=== PATIENT | male | born 1995 | race Caucasian/White ===

== ENCOUNTER 2016-09-17 11:54 | Observation (INO) | payer SELFPAY ==
[~2016-09-17] VITALS: Ht 160 cm; Wt 60.1 kg
[2016-09-17] MEDS ORDERED: ONDANSETRON INJ 2 MG/ML 2 ML VIAL IV STA (12:31)
[2016-09-17] MEDS ORDERED: SODIUM CHLORIDE 0.9% 1000ML 1,000 ML IV STA (12:31)
[2016-09-17] MEDS ORDERED: KETOROLAC TROMETHAMINE 30 MG/ML VIAL IV STA (12:31)
[2016-09-17 12:45] LABS: BASO % 0.2 %; BASO ABS # 0.03 K/uL (0-0.2); COMPLETE YES; EOS % 0.1 %; HEMATOCRIT 47.5 % (42-52); IG% 0.2 %; LYMPH ABS # 1.02 K/uL (1.2-3.4); MEAN CELL VOLUME 87.2 fL (80-100); MEAN CORPUSCULAR HEMOGLOBIN 30.6 pg (25-34); MEAN CORPUSCULAR HGB CONC 35.2 g/dl (32-36); MEAN PLATELET VOLUME 9.9 fL (7.4-10.4); MONO % 5.3 %; NEUT % 87.2 %; PLATELET COUNT 253 K/uL (130-400); RED BLOOD COUNT 5.45 M/uL (4.7-6.1); WHITE BLOOD COUNT 14.54 K/uL (4.8-10.8)
[2016-09-17] MEDS ORDERED: OPTIRAY 320 IV PRN (12:45)
[2016-09-17 12:53] LABS: PARTIAL THROMBOPLASTIN RATIO 1.1; PROTHROMBIN TIME (PATIENT) 11.1 SECONDS (9.0-12.0)
[2016-09-17 12:54] LABS: BUN/CREATININE RATIO 10.6 (10-20); CALCIUM 8.8 mg/dl (8.5-10.1); CREATININE 0.94 mg/dl (0.60-1.40); POTASSIUM 3.4 mmol/L (3.5-5.1)
[2016-09-17 13:09] LABS: URINE APPEARANCE CLEAR (CLEAR); URINE BILIRUBIN NEG (NEG); URINE COLOR YELLOW; URINE NITRITE NEG (NEG); URINE SPECIFIC GRAVITY 1.025 (1.000-1.030); UROBILINOGEN NEG (NEG); ZZUR CULT IF INDIC CLEAN CATCH NO
[2016-09-17 13:15] LABS: MANUAL MICROSCOPIC REQUIRED? NO; REVIEW REQ? NO
--- NOTE | 2016-09-17 13:54 | DIAGNOSTIC IMAGING REPORT ---
CHEST ONE VIEW PORTABLE CLINICAL HISTORY: ABDOMINAL PAIN/GI COMPARISON STUDY: No previous studies for comparison. FINDINGS: The bones soft tissues and hemidiaphragms are normal. The cardiomediastinal silhouette is normal. The lungs are clear. The pulmonary vasculature is normal. IMPRESSION: Negative chest. Electronically signed by: Amilcar Rodriguez M.D. 09/17/2016 1:53 PM Dictated Date/Time: 09/17/2016 1:53 PM
--- NOTE | 2016-09-17 15:12 | DIAGNOSTIC IMAGING REPORT ---
ABDOMEN AND PELVIS CT WITH IV CONTRAST CT DOSE: 329.02 mGy.cm HISTORY: Right lower quadrant pain RLA pain r/o appy TECHNIQUE: Multiaxial CT images of the abdomen and pelvis were performed following the use of intravenous contrast. COMPARISON STUDY: None. FINDINGS: Lung bases are clear. Liver spleen and pancreas are unremarkable. Kidneys enhance uniformly. The bowel pattern is nonobstructive. The appendix is identified medial to the cecum. There is a small appendicolith. The appendix is slightly prominent diameter at 7 mm. There is no evidence for abscess collection or obstruction. Appearance suggests a low-grade appendicitis. Bowel pattern within the soft tissue pelvis is unremarkable. Bladder is midline. There is no significant free fluid within the pelvic cul-de-sac. IMPRESSION: 1. Slight increase in diameter of the appendix is 7 mm with a trace amount of periappendiceal infiltrative change. 2. Small appendicolith. 3. The appearance suggests a low-grade acute appendicitis. 4. No evidence for abscess collection or obstruction. Electronically signed by: Amilcar Rodriguez M.D. 09/17/2016 1:34 PM Dictated Date/Time: 09/17/2016 1:24 PM
--- NOTE | 2016-09-17 15:17 | EMERGENCY ROOM VISIT NOTE ---
History Report prepared by Jose Manuel: Preston Connolly Under the Supervision of: Dr. Reece Padilla D.O. First contact with patient: 12:07 Chief Complaint: ABDOMINAL PAIN Stated Complaint: STOMACH PAIN Nursing Triage Summary: Per friend patient states he has been having alot of stomach pain with no vomiting or diarrhea. History of Present Illness The patient is a 21 year old male who presents to the Emergency Room with complaints of constant abdominal pain beginning 10 hours ago. The patient currently rates his discomfort a 5/10 in severity. He states that he is nauseous. The patient denies vomiting, changes to his urinary symptoms, and fecal retention. He notes that his last normal bowel movement was last night. The patient reports that he has no medical or surgical history. Source of History: patient Onset: 10 hours ago Position: abdomen Symptom Intensity: 5/10 Timing: constant Associated Symptoms: + nausea, No vomiting Note: The patient denies changes to his urinary symptoms and fecal retention. Review of Systems See HPI for pertinent positives & negatives. A total of 10 systems reviewed and were otherwise negative. Family History No pertinent family history stated. Social History Smoking Status: Current Every Day Smoker Marital Status: single Housing Status: lives with family Current/Historical Medications No Active Prescriptions or Reported Meds Allergies Coded Allergies: No Known Allergies (Unverified , 09/17/16) Physical Exam Vital Signs Date Time Temp Pulse Resp B/P Pulse Ox O2 Delivery O2 Flow Rate FiO2 09/17/16 15:21 82 16 114/68 100 Room Air 09/17/16 13:51 80 18 131/76 100 Room Air 09/17/16 11:58 36.8 89 16 136/90 100 Room Air Physical Exam CONSTITUTIONAL/VITAL SIGNS: Reviewed / noted above. GENERAL: Non-toxic in appearance. INTEGUMENTARY: Warm, dry, and [place]. HEAD: Normocephalic. EYES: without scleral icterus or trauma. ENT/OROPHARYNX: clear and moist. LYMPHADENOPATHY/NECK: Is supple without lymphadenopathy or meningismus. RESPIRATORY: Lungs clear and equal. CARDIOVASCULAR: Regular rate and rhythm. GI/ABDOMEN: Soft. Right lower quadrant is tender to palpation. No organomegaly or pulsatile mass. No rebound or guarding. Normal bowel sounds. EXTREMITIES: Warm and well perfused. BACK: No CVA tenderness. NEUROLOGICAL: Intact without focal deficits. PSYCHIATRIC: normal affect. MUSCULOSKELETAL: Normally developed with good muscle tone. Medical Decision & Procedures ER Provider Diagnostic Interpretation: Radiology results as stated below per my review and radiologist interpretation: CHEST ONE VIEW PORTABLE CLINICAL HISTORY: ABDOMINAL PAIN/GI COMPARISON STUDY: No previous studies for comparison. FINDINGS: The bones soft tissues and hemidiaphragms are normal. The cardiomediastinal silhouette is normal. The lungs are clear. The pulmonary vasculature is normal. IMPRESSION: Negative chest. Electronically signed by: Amilcar Rodriguez M.D. 09/17/2016 1:53 PM Dictated Date/Time: 09/17/2016 1:53 PM ABDOMEN AND PELVIS CT WITH IV CONTRAST CT DOSE: 329.02 mGy.cm HISTORY: Right lower quadrant pain RLA pain r/o appy TECHNIQUE: Multiaxial CT images of the abdomen and pelvis were performed following the use of intravenous contrast. COMPARISON STUDY: None. FINDINGS: Lung bases are clear. Liver spleen and pancreas are unremarkable. Kidneys enhance uniformly. The bowel pattern is nonobstructive. The appendix is identified medial to the cecum. There is a small appendicolith. The appendix is slightly prominent diameter at 7 mm. There is no evidence for abscess collection or obstruction. Appearance suggests a low-grade appendicitis. Bowel pattern within the soft tissue pelvis is unremarkable. Bladder is midline. There is no significant free fluid within the pelvic cul-de-sac. IMPRESSION: 1. Slight increase in diameter of the appendix is 7 mm with a trace amount of periappendiceal infiltrative change. 2. Small appendicolith. 3. The appearance suggests a low-grade acute appendicitis. 4. No evidence for abscess collection or obstruction. Electronically signed by: Amilcar Rodriguez M.D. 09/17/2016 1:34 PM Dictated Date/Time: 09/17/2016 1:24 PM Laboratory Results 09/17/16 12:20 Red Blood Count 5.45, Mean Corpuscular Volume 87.2, Mean Corpuscular Hemoglobin 30.6, Mean Corpuscular Hemoglobin Concent 35.2, Mean Platelet Volume 9.9, Neutrophils (%) (Auto) 87.2, Lymphocytes (%) (Auto) 7.0, Monocytes (%) (Auto) 5.3, Eosinophils (%) (Auto) 0.1, Basophils (%) (Auto) 0.2, Neutrophils # (Auto) 12.67, Lymphocytes # (Auto) 1.02, Monocytes # (Auto) 0.77, Eosinophils # (Auto) 0.02, Basophils # (Auto) 0.03 09/17/16 12:20 Test 09/17/16 12:20 White Blood Count 14.54 K/uL (4.8-10.8) Red Blood Count 5.45 M/uL (4.7-6.1) Hemoglobin 16.7 g/dL (14.0-18.0) Hematocrit 47.5 % (42-52) Mean Corpuscular Volume 87.2 fL (80-100) Mean Corpuscular Hemoglobin 30.6 pg (25-34) Mean Corpuscular Hemoglobin Concent 35.2 g/dl (32-36) Platelet Count 253 K/uL (130-400) Mean Platelet Volume 9.9 fL (7.4-10.4) Neutrophils (%) (Auto) 87.2 % Lymphocytes (%) (Auto) 7.0 % Monocytes (%) (Auto) 5.3 % Eosinophils (%) (Auto) 0.1 % Basophils (%) (Auto) 0.2 % Neutrophils # (Auto) 12.67 K/uL (1.4-6.5) Lymphocytes # (Auto) 1.02 K/uL (1.2-3.4) Monocytes # (Auto) 0.77 K/uL (0.11-0.59) Eosinophils # (Auto) 0.02 K/uL (0-0.5) Basophils # (Auto) 0.03 K/uL (0-0.2) RDW Standard Deviation 38.5 fL (36.4-46.3) RDW Coefficient of Variation 12.1 % (11.5-14.5) Immature Granulocyte % (Auto) 0.2 % Immature Granulocyte # (Auto) 0.03 K/uL (0.00-0.02) Prothrombin Time 11.1 SECONDS (9.0-12.0) Prothromb Time International Ratio 1.0 (0.9-1.1) Activated Partial Thromboplast Time 29.0 SECONDS (21.0-31.0) Partial Thromboplastin Ratio 1.1 Urine Color YELLOW Urine Appearance CLEAR (CLEAR) Urine pH 7.0 (4.5-7.5) Urine Specific [place] 1.025 (1.000-1.030) Urine Protein NEG (NEG) Urine Glucose (UA) NEG (NEG) Urine Ketones NEG (NEG) Urine Occult Blood NEG (NEG) Urine Nitrite NEG (NEG) Urine Bilirubin NEG (NEG) Urine Urobilinogen NEG (NEG) Urine Leukocyte Esterase NEG (NEG) Urine WBC (Auto) 0 /hpf (0-5) Urine RBC (Auto) 0-4 /hpf (0-4) Urine Hyaline Casts (Auto) 0 /lpf (0-5) Urine Epithelial Cells (Auto) 5-10 /lpf (0-5) Urine Bacteria (Auto) NEG (NEG) Anion Gap 8.0 mmol/L (3-11) Est Creatinine Clear Calc Drug Dose 99.2 ml/min Estimated GFR () 132.9 Estimated GFR (Non- 114.6 BUN/Creatinine Ratio 10.6 (10-20) Calcium Level 8.8 mg/dl (8.5-10.1) Total Bilirubin 0.5 mg/dl (0.2-1) Direct Bilirubin 0.1 mg/dl (0-0.2) Aspartate Amino Transf (AST/SGOT) 19 U/L (15-37) Alanine Aminotransferase (ALT/SGPT) 14 U/L (12-78) Alkaline Phosphatase 112 U/L (45-117) Total Protein 7.8 gm/dl (6.4-8.2) Albumin 4.4 gm/dl (3.4-5.0) Lipase 65 U/L (73-393) Laboratory results as stated above per my review. Medications Administered Medications (Trade) Dose Ordered Sig/Bull Route Start Time Stop Time Status Last Admin Dose Admin Sodium Chloride (Nss 1000ml) 1,000 ml @ 999 mls/hr Q1H1M STAT IV 09/17/16 12:31 09/17/16 13:31 DC 09/17/16 12:43 999 MLS/HR Ondansetron HCl (Zofran Inj) 4 mg NOW STAT IV 09/17/16 12:31 09/17/16 12:33 DC 09/17/16 12:42 4 MG Ketorolac Tromethamine (Toradol Inj) 30 mg NOW STAT IV 09/17/16 12:31 09/17/16 12:33 DC 09/17/16 12:43 30 MG ED Course 1226: Previous medical records were reviewed. The patient was evaluated in room C10. A complete history and physical examination was performed. 1231: Ordered Toradol Inj 30mg IV, Zofran Inj 4mg IV, Sodium Chloride 1000 ml @ 999 mls/hr IV 1519: I discussed the patient's case and exam finding with Dr. Duran, General Surgery. The patient will be evaluated for surgery. 1522: I discussed the patient's exam findings and treatment plan with him. He verbalized complete understanding and agreement. Medical Decision Differential considered: pancreatitis, hepatitis, or acute cholecystitis, AAA, UTI, pyelonephritis, kidney stones, appendicitis, diverticulitis, shingles, bowel obstruction mesenteric ischemia, intussusception,hernia, testicular torsion. This is a 21-year-old male who presents to the ED with a chief complaint of right lower quadrant abdominal pain and nausea that started about 10 hours prior to his arrival. He denies any prior surgeries. Denies any other significant symptoms. His exam reveals tenderness in the right lower quadrant. His blood work reveals an elevated white blood cell count. Chemistry panel was unremarkable. Chest x-ray did not show acute disease. CT scan of the abdomen and pelvis is concerning for a low-grade acute appendicitis. I spoke with the surgeon on-call. He will see the patient for further evaluation. He was treated with IV fluids here as well as IV Zofran and IV Toradol. Consults Time Called: 1516 Consulting Physician: Dr. Duran, General Surgery Returned Call: 1519 I discussed the patient's case and exam finding with Dr. Duran, General Surgery. The patient will be evaluated for surgery. Impression Primary Impression: Acute appendicitis Scribe Attestation The scribe's documentation has been prepared under my direction and personally reviewed by me in its entirety. I confirm that the note above accurately reflects all work, treatment, procedures, and medical decision making performed by me. Departure Information Dispostion Being Evaluated By Surgeon Prescriptions No Active Prescriptions or Reported Meds Referrals No Doctor, Assigned (PCP) Patient Instructions My [facility]
--- NOTE | 2016-09-17 16:04 | History and Physical ---
History & Physical Date September 17, 2016. History of Present Illness The patient is a 21 year old male with acute appendicitis. He presented to the Emergency Room with complaints of constant abdominal pain beginning 10 hours ago. The patient currently rates his discomfort a 5/10 in severity. He states that he is nauseous. The patient denies vomiting, changes to his urinary symptoms, and fecal retention. He notes that his last normal bowel movement was last night. The patient reports that he has no medical or surgical history. A CT scan shows early acute appendicitis. Past Medical/Surgical History PMHx -negative PSHx -negative Additional History Hepatic Disease: No Endocrine Disorder: No Kidney Disease: No Hypertension: No Heart Disease: No Bleeding Tendencies: No Infectious Diseases: No Allergies Coded Allergies: No Known Allergies (Unverified , 09/17/16) Home Medications No Active Prescriptions or Reported Meds Physical Examination Skin: warm/dry, no rash Eyes: normal inspection, EOMI, sclerae normal ENT: normal ENT inspection, pharynx normal Head: normocephalic, atraumatic Neck: supple, no adenopathy, trachea midline Respiratory/Chest: lungs clear, normal breath sounds, no respiratory distress Cardiovascular: regular rate, rhythm, no edema, no murmur Abdomen / GI: normal bowel sounds, + pertinent finding (RLQ tenderness with guarding) Back: normal inspection Extremities: normal inspection Genitourinary - Male: normal male genitalia Neurologic/Psych: no motor/sensory deficits, alert, oriented x 3 Diagnosis Acute appendicits ASA Classification: ASA Class I Plan of Treatment -to OR for lap appendectomy -[facility] [place]
[2016-09-17] MEDS ORDERED: LIDOCAINE HCL 2% 2 ML VIAL (20MG/ML) ONE (16:07)
[2016-09-17] MEDS ORDERED: PROPOFOL IV EMULSION 10 MG/ML 20 ML VIAL IV ONE (16:07)
[2016-09-17] MEDS ORDERED: SUCCINYLCHOLINE CHLORIDE 20 MG/ML 10 ML VIAL IV ONE (16:07)
[2016-09-17] MEDS ORDERED: ROCURONIUM BROMID 50MG/5ML SYR ONE (16:08)
[2016-09-17] MEDS ORDERED: DEXAMETHASONE SOD INJ 4 MG/ML VIAL ONE (16:08)
[2016-09-17] MEDS ORDERED: ONDANSETRON INJ 2 MG/ML 2 ML VIAL ONE (16:08)
[2016-09-17] MEDS ORDERED: FENTANYL CITRATE INJ 50 MCG/1 ML 2 ML VIAL ONE ×2 (16:11→16:54)
[2016-09-17] MEDS ORDERED: MIDAZOLAM HCL 1 MG/ML 2ML VIAL ONE (16:12)
[2016-09-17] MEDS ORDERED: ONDANSETRON INJ 2 MG/ML 2 ML VIAL IV PRN ×2 (16:15→16:30)
[2016-09-17] MEDS ORDERED: KETOROLAC TROMETHAMINE 30 MG/ML VIAL ONE (16:15)
[2016-09-17] MEDS ORDERED: MoRPHine SULFATE 2 MG/ML CARP IV PRN (16:15)
[2016-09-17] MEDS ORDERED: FENTANYL CITRATE INJ 50 MCG/1 ML 2 ML VIAL IV PRN (16:30)
[2016-09-17] MEDS ORDERED: ATROPINE SULFATE 0.1 MG/ML 5ML SYR IV PRN (16:30)
[2016-09-17] MEDS ORDERED: MoRPHine SULFATE 4 MG/ML 1 ML CARP\\VIAL IV PRN ×2 (16:30)
[2016-09-17] MEDS ORDERED: HYDROmorphone INJ 1 MG/ML SYR IV PRN (16:30)
[2016-09-17] MEDS ORDERED: EpHEDrine SULFATE INJ 50 MG/ML AMP IV PRN (16:30)
[2016-09-17] MEDS ORDERED: CEFOXITIN SOD 1 GM VIAL ONE (16:37)
[2016-09-17] MEDS ORDERED: BUPIVACAINE/EPINEPHRINE 0.5% MPF 1:200,000 30 ML VIAL ONE (16:46)
[2016-09-17] MEDS ORDERED: NEOSTIGMINE METHYLSULFATE 5 MG/5 ML SYR ONE (16:51)
[2016-09-17] MEDS ORDERED: GLYCOPYRROLATE INJ 0.2 MG/ML VIAL ONE (16:51)
--- NOTE | 2016-09-17 17:12 | [facility] Post Operative Brief Note ---
Immediate Operative Summary Operative Date September 17, 2016. Pre-Operative Diagnosis Acute appendisitis Post-Operative Diagnosis Acute appendisitis Procedure(s) Performed Laparoscopic Appendectomy Surgeon Dr. Weston Malloy Consumer Insight Analyst Surgeon(s) None Estimated Blood Loss 15 ml Specimens A: appendix Drains none Anesthesia GETA w/marcaine Complication(s) None Disposition Recovery Room / PACU
--- NOTE | 2016-09-17 17:57 | Anesthesiology Progress Note ---
Anesthesia Post Op Note Date & Time September 17, 2016 at 17:57 Vital Signs Pain Intensity: 0 Vital Signs Past 12 Hours Date Time Temp Pulse Resp B/P Pulse Ox O2 Delivery O2 Flow Rate FiO2 09/17/16 17:50 77 16 134/84 99 Room Air 09/17/16 17:40 80 16 133/80 100 Mask 09/17/16 17:36 36.6 76 16 157/89 100 Mask 09/17/16 16:22 36.8 81 18 128/82 98 09/17/16 15:57 81 18 128/82 98 Room Air 09/17/16 15:21 82 16 114/68 100 Room Air 09/17/16 13:51 80 18 131/76 100 Room Air 09/17/16 11:58 36.8 89 16 136/90 100 Room Air Notes Mental Status: alert / awake / arousable, participated in evaluation Pt Amnestic to Procedure: Yes Nausea / Vomiting: adequately controlled Pain: adequately controlled Airway Patency, RR, SpO2: stable & adequate BP & HR: stable & adequate Hydration State: stable & adequate Anesthetic Complications: no major complications apparent
[2016-09-17] MEDS ORDERED: PIPERACILL/TAZOBAC IV 3.375 GM in DEXTROSE 5% 100ML 100 ML IV SCH (18:00)
[2016-09-17 18:30] VITALS: BP 121/78; PULSE 68; TEMP 36.4; O2SAT 99; Ht 160 cm; Wt 60.1 kg
[2016-09-17] MEDS ORDERED: IV FLUIDS COMPLETED PRN (18:45)
[2016-09-17 19:02] VITALS: BP 120/75; PULSE 74; TEMP 36.4; O2SAT 98
[2016-09-17] MEDS: OXYCODONE/ACETAMINOPHEN 5-325 TAB PO PRN (19:19)
[2016-09-17] MEDS: LACTATED RINGER'S 1000ML 1,000 ML IV SCH (19:20)
[2016-09-17 19:30] VITALS: BP 115/70; PULSE 77; TEMP 36.5; O2SAT 97
[2016-09-17 20:36] VITALS: BP 129/75; PULSE 82; TEMP 37.2; O2SAT 97
[2016-09-17 21:40] VITALS: BP 103/62; PULSE 76; TEMP 37; O2SAT 97
[2016-09-17] MEDS: CEFOXITIN IV 2,000 MG in DEXTROSE 5% 50ML 50 ML IV SCH (22:22)
--- NOTE | 2016-09-17 23:07 | OPERATIVE REPORT ---
DATE OF OPERATION: 09/17/2016 PREOPERATIVE DIAGNOSIS: Acute appendicitis. POSTOPERATIVE DIAGNOSIS: Same. PROCEDURE PERFORMED: Laparoscopic appendectomy. SURGEON: Dr. Weston Malloy. AUTOMATION AND CONTROL ENGINEER: None. ANESTHESIA: General endotracheal with 0.5% Marcaine with epinephrine local, 20 mL ESTIMATED BLOOD LOSS: 15 mL SPECIMENS: Appendix to pathology. COMPLICATIONS: None. DRAINS: None. INDICATION FOR PROCEDURE: This is a 21-year-old male who comes in complaining of 10 hours of abdominal pain. He had a complete workup and had a CT scan which was consistent with acute appendicitis. He is tender in the right lower quadrant with a white count 14. I talked to him in detail about the findings and recommended laparoscopic appendectomy. He understands the risk of an open procedure, bleeding, postop abscess, reoperation or CT-guided drainage and wound problems. He understands this and wishes to proceed. DESCRIPTION OF PROCEDURE: The patient was taken to the OR and underwent excellent general endotracheal anesthesia. His abdomen was prepped and draped in normal sterile fashion. Transverse supraumbilical incision was made and a Veress needle was inserted into his peritoneal cavity with upper tension on the abdominal wall. Good pneumoperitoneum was then achieved to 15 mmHg pressure. A visualized 11 port was then placed, a 12 left lower quadrant, 5 suprapubic, and 5 right upper quadrant port were placed in normal fashion. The patient was placed in head down and rolled to the left. His cecum was identified and a Ros clamp was placed on the cecum. The appendix was identified, it was obviously acutely inflamed. The mesoappendix was taken down with a harmonic scalpel down to the base of the appendix. Appendix was then transected using a GARY stapler. There was one bleeder on the lateral portion of the staple line and this was clipped with a Ligaclip. Abdomen was then irrigated out with a liter of saline and the appendix was brought out with an Endobag. Pneumoperitoneum was reestablished, there was no bleeding, no other abnormalities found. Terminal ileum appeared to be normal, also. The ports were then removed. Pneumoperitoneum was decompressed. 0 Vicryl was used to close the two fascial defects at 11 and 12 ports. Vicryl was used to close the skin. 0.5% Marcaine with epinephrine local was used to create a local field block. Steri-Strips and benzoin were used to reinforce the incision. Sterile dressings were applied. The patient tolerated the procedure well without any complications, sent to post-recovery for a period of observation and be discharged up to his room once he meets criteria. I attest to the content of the Intraoperative Record and any orders documented therein. Any exceptio ns are noted below.
[2016-09-17 23:16] VITALS: BP 91/48; PULSE 79; TEMP 36.5; O2SAT 97
[2016-09-18] MEDS: LACTATED RINGER'S 1000ML 1,000 ML IV SCH ×2 (00:18→07:55)
[2016-09-18] MEDS: OXYCODONE/ACETAMINOPHEN 5-325 TAB PO PRN ×3 (00:23→14:19)
[2016-09-18 03:35] VITALS: BP 109/57; PULSE 72; TEMP 36.4; O2SAT 99
[2016-09-18] MEDS: CEFOXITIN IV 2,000 MG in DEXTROSE 5% 50ML 50 ML IV SCH ×2 (05:31→14:15)
[2016-09-18 07:07] VITALS: BP 100/50; PULSE 57; TEMP 36.4; O2SAT 98
--- NOTE | 2016-09-18 10:10 | Surgery Progress Note ---
Surgery Progress Note Date of Service September 18, 2016. Subjective Post OP Day: 1 + diet, + feeling well, No complaints, No nausea, No vomiting Objective Vital Signs: Date Time Temp Pulse Resp B/P Pulse Ox O2 Delivery O2 Flow Rate FiO2 09/18/16 07:58 Room Air 09/18/16 07:07 36.4 57 20 100/50 98 Room Air 09/18/16 03:35 36.4 72 14 109/57 99 Room Air 09/18/16 00:10 Room Air 09/17/16 23:16 36.5 79 15 91/48 97 Room Air 09/17/16 21:40 37.0 76 16 103/62 97 Room Air 09/17/16 20:36 37.2 82 16 129/75 97 Room Air 09/17/16 19:30 36.5 77 16 115/70 97 Room Air 09/17/16 19:02 36.4 74 16 120/75 98 Room Air 09/17/16 18:30 99 Room Air 09/17/16 18:30 36.4 68 16 121/78 99 Room Air 09/17/16 18:30 36.4 68 16 121/78 99 Room Air 09/17/16 18:30 99 Room Air 09/17/16 18:10 74 16 135/85 98 Room Air 09/17/16 18:00 74 16 132/84 98 Room Air 09/17/16 17:50 77 16 134/84 99 Room Air 09/17/16 17:40 80 16 133/80 100 Mask 09/17/16 17:36 36.6 76 16 157/89 100 Mask 09/17/16 16:22 36.8 81 18 128/82 98 09/17/16 15:57 81 18 128/82 98 Room Air 09/17/16 15:21 82 16 114/68 100 Room Air 09/17/16 13:51 80 18 131/76 100 Room Air 09/17/16 11:58 36.8 89 16 136/90 100 Room Air General Appearance: WD/WN, no apparent distress Head: normocephalic, atraumatic Neck: supple, trachea midline Respiratory/Chest: lungs clear Cardiovascular: regular rate, rhythm Abdomen: normal bowel sounds, non distended, soft, + tenderness (mild) Extremities: non-tender, no pedal edema Laboratory Results: Results Past 24 Hours Test 09/17/16 12:20 Range/Units White Blood Count 14.54 4.8-10.8 K/uL Red Blood Count 5.45 4.7-6.1 M/uL Hemoglobin 16.7 14.0-18.0 g/dL Hematocrit 47.5 42-52 % Mean Corpuscular Volume 87.2 80-100 fL Mean Corpuscular Hemoglobin 30.6 25-34 pg Mean Corpuscular Hemoglobin Concent 35.2 32-36 g/dl Platelet Count 253 130-400 K/uL Mean Platelet Volume 9.9 7.4-10.4 fL Neutrophils (%) (Auto) 87.2 % Lymphocytes (%) (Auto) 7.0 % Monocytes (%) (Auto) 5.3 % Eosinophils (%) (Auto) 0.1 % Basophils (%) (Auto) 0.2 % Neutrophils # (Auto) 12.67 1.4-6.5 K/uL Lymphocytes # (Auto) 1.02 1.2-3.4 K/uL Monocytes # (Auto) 0.77 0.11-0.59 K/uL Eosinophils # (Auto) 0.02 0-0.5 K/uL Basophils # (Auto) 0.03 0-0.2 K/uL RDW Standard Deviation 38.5 36.4-46.3 fL RDW Coefficient of Variation 12.1 11.5-14.5 % Immature Granulocyte % (Auto) 0.2 % Immature Granulocyte # (Auto) 0.03 0.00-0.02 K/uL Prothrombin Time 11.1 9.0-12.0 SECONDS Prothromb Time International Ratio 1.0 0.9-1.1 Activated Partial Thromboplast Time 29.0 21.0-31.0 SECONDS Partial Thromboplastin Ratio 1.1 Urine Color YELLOW Urine Appearance CLEAR CLEAR Urine pH 7.0 4.5-7.5 Urine Specific [place] 1.025 1.000-1.030 Urine Protein NEG NEG Urine Glucose (UA) NEG NEG Urine Ketones NEG NEG Urine Occult Blood NEG NEG Urine Nitrite NEG NEG Urine Bilirubin NEG NEG Urine Urobilinogen NEG NEG Urine Leukocyte Esterase NEG NEG Urine WBC (Auto) 0 0-5 /hpf Urine RBC (Auto) 0-4 0-4 /hpf Urine Hyaline Casts (Auto) 0 0-5 /lpf Urine Epithelial Cells (Auto) 5-10 0-5 /lpf Urine Bacteria (Auto) NEG NEG Sodium Level 141 136-145 mmol/L Potassium Level 3.4 3.5-5.1 mmol/L Chloride Level 106 98-107 mmol/L Carbon Dioxide Level 27 21-32 mmol/L Anion Gap 8.0 3-11 mmol/L Blood Urea Nitrogen 10 7-18 mg/dl Creatinine 0.94 0.60-1.40 mg/dl Est Creatinine Clear Calc Drug Dose 99.2 ml/min Estimated GFR () 132.9 Estimated GFR (Non- 114.6 BUN/Creatinine Ratio 10.6 10-20 Random Glucose 115 70-99 mg/dl Calcium Level 8.8 8.5-10.1 mg/dl Total Bilirubin 0.5 0.2-1 mg/dl Direct Bilirubin 0.1 0-0.2 mg/dl Aspartate Amino Transf (AST/SGOT) 19 15-37 U/L Alanine Aminotransferase (ALT/SGPT) 14 12-78 U/L Alkaline Phosphatase 112 45-117 U/L Total Protein 7.8 6.4-8.2 gm/dl Albumin 4.4 3.4-5.0 gm/dl Lipase 65 73-393 U/L Assessment & Plan acute appendicitis s/p lap appy -doing well -home today
[2016-09-18] MEDS ORDERED: OXYC-57 PO (10:11)
--- NOTE | 2016-09-18 10:14 | Discharge Instructions ---
Discharge Instructions Date of Service September 18, 2016. Admission Reason for Admission: Acute Appendicitis Discharge Discharge Diagnosis / Problem: s/p appendectomy Discharge Goals Goal(s): Therapeutic intervention Activity Recommendations Activity Limitations: per Instructions/Follow-up section Lifting Limitations: no more than 25 pounds Exercise/Sports Limitations: until after follow-up appointment May Resume Sexual Activity: when tolerated Shower/Bathe: tomorrow (remove dressings and replace as needed; steris will come off in 3-7 days) Driving or Machine Use: resume 3 days after discharge (as long as not taking narcotics) . Instructions / Follow-Up Instructions / Follow-Up -walk and stairs as tolerated appt my clinic in 1-2 weeks; [phone] Current Hospital Diet Patient's current hospital diet: Full Liquid Diet Discharge Diet Recommended Diet: Regular Diet Procedures Procedures Performed: Laparoscopic Appendectomy Pending Studies Studies pending at discharge: no Work Instructions Return To Work: after follow-up Lifting Limitations: no more than 20 pounds Medical Emergencies . Who to Call and When: Medical Emergencies: If at any time you feel your situation is an emergency, please call 911 immediately. . Non-Emergent Contact Non-Emergency issues call your: Primary Care Provider, Surgeon Call Non-Emergent contact if: temperature is above 101.5, your pain is not controlled, your pain is worsening, your pain is unusual for you, your pain is concerning you, wound has increased redness, wound has increased pain, you have any medication questions . "Provider Documentation" section prepared by Weston Malloy. . VTE Core Measure Inpt VTE Proph given/why not?: SCD[facility] [place] Drug Monitoring Program Search Results: patient reviewed within database
[2016-09-18 10:58] VITALS: BP 97/57; PULSE 64; TEMP 36.6
[2016-09-18 12:47] VITALS: BP 97/57; PULSE 64; TEMP 36.6; O2SAT 98
--- NOTE | 2016-09-18 13:07 | DISCHARGE SUMMARY ---
DIAGNOSIS: Acute appendicitis. ATTENDING PHYSICIAN: Weston Malloy MD PROCEDURES PERFORMED: Laparoscopic appendectomy, 09/17/2016. CONSULTS: None. HISTORY OF PRESENT ILLNESS: This is a 21-year-old male who was admitted through the Emergency Department with complaints of 10 hours of abdominal pain. He underwent a workup, which showed an acute appendicitis. He was therefore taken to the OR and will undergo a laparoscopic appendectomy. HOSPITAL COURSE: The patient was admitted, given IV antibiotics, IV fluids, sent to the OR and underwent uncomplicated laparoscopic appendectomy. He was sent to floor for his postop care. His diet and activity were advanced without difficulty. He would to be discharged to home on postoperative day #1. DISCHARGE MEDICATIONS: Percocet 5/325 one tablet p.o. q. 6 hours p.r.n. pain. DIET: Regular as tolerated. ACTIVITIES: No strenuous activity for 3 weeks. Follow up in 2 weeks in my office.
== END 2016-09-18 14:33 | disposition home or self-care (01) ==
LOC: ENRESERVDT → ENRESERVTM → C.EDB 11:57 → C.MSW 17:14
PROVIDERS: ADMIT Surgery; ATTEND Surgery
DX: K35.80 Unspecified acute appendicitis (principal); Z68.24 Body mass index [BMI] 24.0-24.9, adult

== ENCOUNTER 2017-02-16 10:07 | Emergency (ER) | payer SELFPAY ==
[~2017-02-16] VITALS: Ht 152.4 cm; Wt 45.3 kg
[~2017-02-16 10:07] MED LIST: OXYC-57 PO
[2017-02-16 10:14] VITALS: TEMP 36.8; Ht 152.4 cm; Wt 45.3 kg
[2017-02-16] MEDS ORDERED: KETOROLAC TROMETHAMINE 30 MG/ML VIAL IV STA (10:30)
[2017-02-16] MEDS ORDERED: SODIUM CHLORIDE 0.9% 500ML 500 ML IV STA (10:30)
[2017-02-16] MEDS ORDERED: OPTIRAY 320 IV PRN (10:45)
[2017-02-16 10:52] LABS: BASO % 0.6 %; BASO ABS # 0.03 K/uL (0-0.2); COMPLETE YES; EOS % 5.4 %; HEMATOCRIT 47.9 % (42-52); IG% 0.2 %; LYMPH ABS # 1.49 K/uL (1.2-3.4); MEAN CELL VOLUME 86.9 fL (80-100); MEAN CORPUSCULAR HGB CONC 35.7 g/dl (32-36); MEAN PLATELET VOLUME 10.2 fL (7.4-10.4); MONO % 7.9 %; NEUT % 53.9 %; PLATELET COUNT 245 K/uL (130-400); RED BLOOD COUNT 5.51 M/uL (4.7-6.1); WHITE BLOOD COUNT 4.66 K/uL (4.8-10.8)
[2017-02-16 11:01] LABS: BUN/CREATININE RATIO 14.7 (10-20); CALCIUM 8.7 mg/dl (8.5-10.1); CREATININE 0.91 mg/dl (0.60-1.40); POTASSIUM 3.7 mmol/L (3.5-5.1)
[2017-02-16 11:07] LABS: MANUAL MICROSCOPIC REQUIRED? NO; REVIEW REQ? NO; URINE APPEARANCE CLEAR (CLEAR); URINE BILIRUBIN NEG (NEG); URINE COLOR YELLOW; URINE EPITHELIAL CELL AUTO 0-5 /lpf (0-5); URINE NITRITE NEG (NEG); URINE SPECIFIC GRAVITY 1.024 (1.000-1.030); UROBILINOGEN NEG (NEG); ZZUR CULT IF INDIC CLEAN CATCH NO
--- NOTE | 2017-02-16 11:53 | DIAGNOSTIC IMAGING REPORT ---
ABD/PELVIS IV CONTRAST ONLY HISTORY: 22 years-old Male diffuse abd pain acute generalized abdominal pain. History of prior appendectomy. COMPARISON: CT abdomen and pelvis 09/17/2016 TECHNIQUE: Multiple axial CT images of the abdomen and pelvis were obtained following the intravenous administration of 90 mL Optiray 320. A dose lowering technique was used consistent with the principals of MOHAMUD. FINDINGS: Lung bases are clear. No pneumoperitoneum or pneumatosis identified. Imaged inferior cardiac chambers are unremarkable. Liver, gallbladder, spleen, pancreas and adrenal glands are within normal limits. No intrahepatic biliary ductal dilation. The portal vein is patent. The abdominal aorta is normal in both course and caliber without dissection or aneurysm identified. No bulky retroperitoneal adenopathy identified. Kidneys, ureters and urinary bladder are unremarkable. Stomach, small and large bowel are within normal limits without bowel obstruction. Moderate stool volume of the ascending and transverse colon. Prior appendectomy. Soft tissues are unremarkable. Chronic appearing bilateral pars defects at L5-S1 appear unchanged from comparison. No spondylolisthesis. IMPRESSION: 1. No acute intra-abdominal or intrapelvic abnormality identified. Prior appendectomy. 2. 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 The above report was generated using voice recognition software. It may contain grammatical, syntax or spelling errors. Electronically signed by: Tucker Forman M.D. 02/16/2017 11:52 AM Dictated Date/Time: 02/16/2017 11:40 AM
[2017-02-16 12:35] VITALS: BP 112/72; PULSE 66; O2SAT 99
--- NOTE | 2017-02-16 16:25 | EMERGENCY ROOM VISIT NOTE ---
History Report prepared by Jose Manuel: Paddy Damon Under the Supervision of: Dr. Aaron Davila D.O. First contact with patient: 10:12 Chief Complaint: ABDOMINAL PAIN Stated Complaint: ABD PAIN History of Present Illness The patient is a 22 year old male who presents to the Emergency Room with complaints of lower abdominal pain that began 1 week ago. This history is given by the patient's friend who is translating for him. He rates his pain a 5/10 in severity. He received an appendectomy 3 months ago. Last week, he began having lower abdominal pain. He describes this pain as a "pulse" with radiation to his right leg. This has never happened to him before. Nothing makes his pain better or worse. He denies any fevers, rhinorrhea, sore throat, nausea, vomiting, chest pain, shortness of breath, or abnormal urinary symptoms. He notes that he has an intermittent cough. He denies any swelling to his testicles. He denies any other abdominal surgeries. Source of History: patient Onset: 1 week ago Position: abdomen (lower) Symptom Intensity: 5/10 Quality: other (Pulse) Timing: constant Associated Symptoms: + cough, No fevers, No sorethroat, No chest pain, No SOB, No nausea, No vomiting, No urinary symptoms Review of Systems See HPI for pertinent positives & negatives. A total of 10 systems reviewed and were otherwise negative. Past Medical & Surgical Surgical Problems: (1) History of appendectomy Family History Patient reports no known family medical history. Social History Smoking Status: Current Some Day Smoker Marital Status: single Housing Status: lives with family Occupation Status: employed Current/Historical Medications No Active Prescriptions or Reported Meds Allergies Coded Allergies: No Known Allergies (Unverified , 02/16/17) Physical Exam Vital Signs Date Time Temp Pulse Resp B/P (MAP) Pulse Ox O2 Delivery O2 Flow Rate FiO2 02/16/17 12:35 66 20 112/72 99 02/16/17 11:35 68 16 113/74 100 02/16/17 10:14 36.8 70 18 131/80 95 Room Air Physical Exam GENERAL: alert, well appearing, well nourished, no distress, non-toxic EYE EXAM: normal conjunctiva OROPHARYNX: no exudate, no erythema, lips, buccal mucosa, and tongue normal and mucous membranes are moist NECK: supple, no nuchal rigidity, no adenopathy, non-tender LUNGS: Clear to auscultation. Normal chest wall mechanics HEART: no murmurs, S1 normal and S2 normal ABDOMEN: abdomen soft, minimal tenderness periumbilically, normo-active bowel sounds, no masses, no rebound or guarding. Three port incisions that are well healing and slightly tender. : Normal external genitalia. Testicles nontender. BACK: Back is symmetrical on inspection and there is no deformity, no midline tenderness, no CVA tenderness. SKIN: no rashes and no bruising UPPER EXTREMITIES: upper extremities are grossly normal. LOWER EXTREMITIES: No pitting edema. NEURO EXAM: Normal sensorium, cranial nerves II-XII grossly intact, normal speech, no gross weakness of arms, no gross weakness of legs. Medical Decision & Procedures ER Provider Diagnostic Interpretation: Radiology results as stated below per my review and the radiologist's interpretation: ABD/PELVIS IV CONTRAST ONLY HISTORY: 22 years-old Male diffuse abd pain acute generalized abdominal pain. History of prior appendectomy. COMPARISON: CT abdomen and pelvis 09/17/2016 TECHNIQUE: Multiple axial CT images of the abdomen and pelvis were obtained following the intravenous administration of 90 mL Optiray 320. A dose lowering technique was used consistent with the principals of LUISRA. FINDINGS: Lung bases are clear. No pneumoperitoneum or pneumatosis identified. Imaged inferior cardiac chambers are unremarkable. Liver, gallbladder, spleen, pancreas and adrenal glands are within normal limits. No intrahepatic biliary ductal dilation. The portal vein is patent. The abdominal aorta is normal in both course and caliber without dissection or aneurysm identified. No bulky retroperitoneal adenopathy identified. Kidneys, ureters and urinary bladder are unremarkable. Stomach, small and large bowel are within normal limits without bowel obstruction. Moderate stool volume of the ascending and transverse colon. Prior appendectomy. Soft tissues are unremarkable. Chronic appearing bilateral pars defects at L5-S1 appear unchanged from comparison. No spondylolisthesis. IMPRESSION: 1. No acute intra-abdominal or intrapelvic abnormality identified. Prior appendectomy. 2. 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 The above report was generated using voice recognition software. It may contain grammatical, syntax or spelling errors. Electronically signed by: Tucker Forman M.D. 02/16/2017 11:52 AM Dictated Date/Time: 02/16/2017 11:40 AM Laboratory Results 02/16/17 10:23 Red Blood Count 5.51, Mean Corpuscular Volume 86.9, Mean Corpuscular Hemoglobin 31.0, Mean Corpuscular Hemoglobin Concent 35.7, Mean Platelet Volume 10.2, Neutrophils (%) (Auto) 53.9, Lymphocytes (%) (Auto) 32.0, Monocytes (%) (Auto) 7.9, Eosinophils (%) (Auto) 5.4, Basophils (%) (Auto) 0.6, Neutrophils # (Auto) 2.51, Lymphocytes # (Auto) 1.49, Monocytes # (Auto) 0.37, Eosinophils # (Auto) 0.25, Basophils # (Auto) 0.03 02/16/17 10:23 Test 02/16/17 10:23 02/16/17 10:55 White Blood Count 4.66 K/uL (4.8-10.8) Red Blood Count 5.51 M/uL (4.7-6.1) Hemoglobin 17.1 g/dL (14.0-18.0) Hematocrit 47.9 % (42-52) Mean Corpuscular Volume 86.9 fL (80-100) Mean Corpuscular Hemoglobin 31.0 pg (25-34) Mean Corpuscular Hemoglobin Concent 35.7 g/dl (32-36) Platelet Count 245 K/uL (130-400) Mean Platelet Volume 10.2 fL (7.4-10.4) Neutrophils (%) (Auto) 53.9 % Lymphocytes (%) (Auto) 32.0 % Monocytes (%) (Auto) 7.9 % Eosinophils (%) (Auto) 5.4 % Basophils (%) (Auto) 0.6 % Neutrophils # (Auto) 2.51 K/uL (1.4-6.5) Lymphocytes # (Auto) 1.49 K/uL (1.2-3.4) Monocytes # (Auto) 0.37 K/uL (0.11-0.59) Eosinophils # (Auto) 0.25 K/uL (0-0.5) Basophils # (Auto) 0.03 K/uL (0-0.2) RDW Standard Deviation 39.8 fL (36.4-46.3) RDW Coefficient of Variation 12.5 % (11.5-14.5) Immature Granulocyte % (Auto) 0.2 % Immature Granulocyte # (Auto) 0.01 K/uL (0.00-0.02) Anion Gap 6.0 mmol/L (3-11) Est Creatinine Clear Calc Drug Dose 80.9 ml/min Estimated GFR () 137.2 Estimated GFR (Non- 118.4 BUN/Creatinine Ratio 14.7 (10-20) Calcium Level 8.7 mg/dl (8.5-10.1) Total Bilirubin 0.8 mg/dl (0.2-1) Direct Bilirubin 0.1 mg/dl (0-0.2) Aspartate Amino Transf (AST/SGOT) 15 U/L (15-37) Alanine Aminotransferase (ALT/SGPT) 13 U/L (12-78) Alkaline Phosphatase 91 U/L (45-117) Total Protein 7.8 gm/dl (6.4-8.2) Albumin 4.3 gm/dl (3.4-5.0) Lipase 97 U/L (73-393) Urine Color YELLOW Urine Appearance CLEAR (CLEAR) Urine pH 7.0 (4.5-7.5) Urine Specific [place] 1.024 (1.000-1.030) Urine Protein NEG (NEG) Urine Glucose (UA) NEG (NEG) Urine Ketones NEG (NEG) Urine Occult Blood NEG (NEG) Urine Nitrite NEG (NEG) Urine Bilirubin NEG (NEG) Urine Urobilinogen NEG (NEG) Urine Leukocyte Esterase NEG (NEG) Urine WBC (Auto) 0 /hpf (0-5) Urine RBC (Auto) 0-4 /hpf (0-4) Urine Hyaline Casts (Auto) 0 /lpf (0-5) Urine Epithelial Cells (Auto) 0-5 /lpf (0-5) Urine Bacteria (Auto) NEG (NEG) Laboratory results per my review. Medications Administered Medications (Trade) Dose Ordered Sig/Bull Route Start Time Stop Time Status Last Admin Dose Admin Sodium Chloride 500 ml @ 999 mls/hr Q31M STAT IV 02/16/17 10:30 02/16/17 11:00 DC 02/16/17 10:50 999 MLS/HR Ketorolac Tromethamine (Toradol Inj) 30 mg NOW STAT IV 02/16/17 10:30 02/16/17 10:32 DC 02/16/17 10:50 30 MG ED Course ED COURSE: Vital signs were reviewed and showed hypertension The patients medical record was reviewed The above diagnostic studies were performed and reviewed. ED treatments and interventions as stated above. 1012: The patient was evaluated in room A4. A complete history and physical examination was performed. 1030: Ordered Toradol Inj 30 mg IV, Sodium Chloride 500 ml @ 999 mls/hr IV 1235: Upon reevaluation, the patient is resting. I discussed my findings with the patient and he understands and agrees with the treatment plan. Based on the patients age, coexisting illnesses, exam and lab findings the decision to treat as an outpatient was made. The patient remained stable while under my care. The patient appeared well at the time of discharge. Medical Decision Differential diagnoses includes but is not limited to gastritis, peptic ulcer disease, GERD, gallbladder disease, pancreatitis, small bowel obstruction, acute coronary syndrome, pericarditis, ischemic bowel, irritable bowel disease, irritable bowel syndrome, appendicitis, diverticulitis, malignancy, hernia, urinary tract infection, torsion, perforation, trauma, infectious. Patient is a 22-year-old male who presents to ER for lower abdominal pain mainly focused around the incision sites from his previous appendectomy back in August. Patient denies any fevers. Patient was interviewed with a friend at bedside who is translating. CBC all BMP, LFTs, bilirubin lipase is unremarkable. UA was negative. Patient completely benign exam. CT abdomen and pelvis was negative. Patient was updated at bedside. He was given fluids and Toradol. He did feel better. He was discharged take Tylenol and/or Motrin and follow-up with PCP. Discussed with Pt concerning signs and symptoms to watch out for. Pt was instructed to follow up with their PCP and discussed with the patient their option to return to the ED at anytime for persistent or worsening symptoms. The appropriate anticipatory guidance and out-patient management, including indications for return to the emergency department, were explained at length to the patient and understood. Medication Reconcilliation Current Medication List: was personally reviewed by me Blood Pressure Screening Patient's blood pressure: Elevated blood pressure Blood pressure disposition: Elevated BP felt to be situational Impression Primary Impression: Abdominal pain Scribe Attestation The scribe's documentation has been prepared under my direction and personally reviewed by me in its entirety. I confirm that the note above accurately reflects all work, treatment, procedures, and medical decision making performed by me. Departure Information Dispostion Home / Self-Care Prescriptions No Active Prescriptions or Reported Meds Referrals No Doctor, Assigned (PCP) Forms HOME CARE DOCUMENTATION FORM, IMPORTANT VISIT INFORMATION Patient Instructions Abdominal Pain - [facility] Additional Instructions Please follow up with your primary care doctor or if you are a student, [facility] with in the next 24 hours. Any worsening of your symptoms, please return to the ED immediately. This includes any fevers greater than 100.4, worsening pain, chest pain, shortness breath, persistent nausea, vomiting, unable to eat or drink, or any other concerning signs or symptoms from your standpoint. Please take Tylenol or Motrin as needed for pain. Problem Qualifiers Primary Impression: Abdominal pain Abdominal location: lower abdomen, unspecified Qualified Codes: R10.30 - Lower abdominal pain, unspecified
== END 2017-02-16 12:38 | disposition home or self-care (01) ==
LOC: C.EDB 10:10 → C.EDA 12:38
DX: R10.30 Lower abdominal pain, unspecified (principal); Z98.890 Other specified postprocedural states; F17.210 Nicotine dependence, cigarettes, uncomplicated